=== PATIENT | male | born 1965 | race Caucasian/White ===

== ENCOUNTER 2023-10-20 23:21 | Observation (INO) | payer BC, SELFPAY ==
[2023-10-20 23:21] VITALS: BP 122/58; PULSE 77; RESP 15; TEMP 36.4; O2SAT 98; BMI 22.8
--- NOTE | 2023-10-20 23:55 | EDS_ITS ---
HPI History of Present Illness Chief Complaint: Substance Abuse Informant: patient Onset/Context/Timing Onset: - (Years of alcohol abuse.) Context: Gradual Onset Timing: Continuous Narrative Narrative: 57-year-old male with a history of alcohol abuse for years that he typically drinks 5-6 beers per day. He has been trying to this afternoon. He is requesting inpatient detox. Denies recent illness. Denies vomiting or melena. Denies abdominal pain. He does have a history of hypertension. Patient has never had detox before. Prior similar symptoms: Yes Recent Illness/Hospitalization: No PFSH PFS Medical History Alcohol abuse Hypertension Home Medications ?Medication ?Instructions ?Recorded ?Last Taken ?Type acamprosate 333 mg tablet,delayed 333 mg PO TID 10/21/23 Unknown History release amlodipine 5 mg tablet 5 mg PO QPM bp 10/21/23 10/21/23 History citalopram 20 mg tablet (Celexa) 20 mg PO DAILY 10/21/23 Unknown History cyclobenzaprine 10 mg tablet 10 mg PO TID 10/21/23 Unknown History lisinopril 40 mg tablet 40 mg PO DAILY 10/21/23 Unknown History mirtazapine 30 mg tablet 30 mg PO DAILY 10/21/23 Unknown History naltrexone 50 mg tablet 50 mg PO DAILY 10/21/23 Unknown History Allergy/AdvReac Type Severity Reaction Status Date / Time No Known Allergies Allergy Verified 10/20/23 23:25 Surgical History History of appendectomy Social History Smoking Status: Never smoker ROS ROS ED ROS Narrative Denies recent illness. Review of Systems ROS Unobtainable: Denies due to encephalopathy Constitutional Constitutional ED: Denies chills Eyes Eyes: Denies blurry vision ENT ENT ED: Denies ear pain Cardiovascular Cardiovascular: Denies chest pain Respiratory/Chest Respiratory/Chest: Denies cough or dyspnea Gastrointestinal Gastrointestinal: Denies abdominal pain, diarrhea, melena, nausea or vomiting Genitourinary Genitourinary ED: Denies dysuria Musculoskeletal Musculoskeletal: Denies arthralgias Integumentary Denies abscess Neurologic Neurologic: Denies headache(s) Psychiatric Psychiatric: Denies anxiety Endocrine Endocrinology: Denies cold intolerance Hematologic/Lymphatic Hematologic/Lymphatic: Denies easy bleeding, easy bruising or lymphadenopathy Allergic/Immunologic Allergic/Immunologic ED: Denies mouth swelling, tongue swelling or urticaria EXAM Physical Exam Narrative Exam Narrative: Well-appearing 57-year-old male. Vital signs stable afebrile. H EENT exam unremarkable. Neck nontender. No lymphadenopathy. Lungs clear to auscultation bilaterally. Heart regular rhythm no murmur. Abdomen soft nontender. Moving all 4 extremities. Nontender no edema. Neurologically he is awake and alert no focal motor deficits. Answering questions following commands. Const Vital Signs: 10/20/23 23:21 Temperature 97.6 F L Temperature Source Temporal Pulse Rate 77 Respiratory Rate 15 Blood Pressure 122/58 H Blood Pressure Mean 79 Pulse Ox 98 Oxygen Delivery Method Room Air Positive well nourished and well developed; Negative for cachectic, contractures or unkempt General Appearance ED: well developed and NAD; Negative for unkempt, cachectic, contractures or pallor Nutritional Appearance: Negative for cachectic HEENT Reports moist mucous membranes; Denies dry mucous membranes atraumatic; Negative for trauma or tenderness Mouth ED: No dry mucous membranes Mouth: No dry mucous membranes Eyes PERRL and EOMs intact bilaterally General Eye ED: Negative for pale conjunctiva, scleral icterus or other Neck no lymphadenopathy, supple and no JVD Thyroid: Negative for tender Lymph Lymphatic: no lymphadenopathy noted Chest Wall palpation of chest normal Chest: Negative for other Resp normal respiratory effort and clear to auscultation bilaterally Effort and Inspection: Negative for retractions Auscultation: Negative for rales, rhonchi, wheezes or diminished lung sounds Cardio regular rate, regular rhythm, S1 normal heart sound, S2 normal heart sound and no murmurs Rate: Negative for bradycardia or tachycardic Rhythm: Negative for abnormal rhythm Bruits: Negative for other GI soft to palpation, non-tender, non-distended and no masses Inspection: Negative for abdominal distention Palpation: Negative for tender or guarding Back/Spine no CVA tenderness General Back: Negative for CVA tenderness Cervical Spine: Negative for cervical spine tenderness Thoracic Spine / Upper Back: Negative for thoracic spinal tenderness Lumbar Spine / Lower Back: Negative for lumbar spinal tenderness Extremity General Extremety ED: Negative for edema or tenderness General Extremity: Negative for edema Neuro oriented x3 and CN's II-XII intact bilaterally Sensorium / Orientation: alert, oriented to person, oriented to place and oriented to time; Negative for confused, lethargic or stuporous Speech: speech normal Motor Exam: strength 5/5 throughout Psych mental status grossly normal and thought process normal Appearance: Negative for unkempt Attitude: No belligerent, No agitated, No aggressive and No hostile Mood & Affect: Negative for depressed, anxious or tearful Skin General Skin Exam: Negative for jaundice or pallor Lesions: no lesions Rashes: no rashes MDM MDM MDM Narrative Medical decision making narrative: 57-year-old male history of chronic alcohol abuse. Currently denies any recent illness. Denies any vomiting or melena. Clinically appears well. Exam benign. Screening detox labs are being obtained. I have the hospitalist on page for admission to detox. History & Record Review Discussion w/independent historian: Patient and Family Additional record(s) reviewed:: Prior labs Lab Data Attestation: I reviewed the patient's lab results. Lab results narrative: CBC normal. White count of 7. H&H of 13.3 and 39. Platelets 312. Alcohol level 100. Electrolytes show sodium 133. Gap 11. Normal BUN and creatinine. Glucose 126. Liver enzymes slightly elevated AST at 68 and ALT at 94. Urine tox screen pending. Labs: Laboratory Results - last 24 hr 10/20/23 23:40 WBC 7.4 RBC 4.29 L Hgb 13.3 Hct 39.8 L MCV 92.8 MCH 31.0 MCHC 33.4 RDW Std Deviation 40.1 RDW Coeff of Buck 11.8 Plt Count 312 MPV 9.5 Immature Gran % (Auto) 0.300 Neut % (Auto) 63.3 Lymph % (Auto) 27.3 [place] % (Auto) 8.1 Eos % (Auto) 0.5 Baso % (Auto) 0.5 Absolute Neuts (auto) 4.7 Absolute Lymphs (auto) 2.03 Nucleated RBC % 0 Sodium 133 L Potassium 4.0 Chloride 98 Carbon Dioxide 24.0 Anion Gap 11 BUN 9 Creatinine 0.88 Estim Creat Clear Calc 95.10 Est GFR (MDRD) Af Amer 114 Est GFR (MDRD) Non-Af 94 BUN/Creatinine Ratio 10.3 Glucose 126 H Calcium 8.6 Total Bilirubin 0.40 AST 68 H ALT 94 H Alkaline Phosphatase 115 Total Protein 7.5 Albumin 4.3 Globulin 3.2 Albumin/Globulin Ratio 1.3 Ethyl Alcohol 100.0 Discharge Plan Dx/Rx/DC Orders Clinical Impression: Alcohol abuse, Admitted to alcohol detoxification center, History of hypertension Disposition Disposition: Acute Care Hospital [facility] Discharge Date/Time: 10/21/23 00:41
--- NOTE | 2023-10-20 23:58 | ED.RN ---
The pt agrees to give consent Nghia Avery to give medical info during detox. [phone] is his number.
--- NOTE | 2023-10-20 23:59 | HP.PCM.HOS_ITS ---
[facility] - General General Date of Admission: 10/21/23 Date of Service: 10/13/23 Chief Complaint: Wants Help with Alcohol Detox. HPI Narrative JOSE LUIS LIU, is a 57 M with a past medical history of essential hypertension, history of appendectomy, history of cannabis abuse (Gummies) and chronic EtOH abuse; with patient routinely ingesting a sixpack of beer daily who presents to [facility] ER complaining of wanting help with detox. Mr. Liu reports his symptoms began approximately 1 day prior to admission with a gradual onset of malaise and uneasiness after he was confronted by his son and his about his alcohol abuse. He went on to state that he pushed the limit of his family's tolerance and now he knows he needs to get help to avoid destroying the relationship with his family. He denies previous alcohol detox. He denies seizure activity, hallucinations, tremor or other signs of withdrawal but he does admit to increased concern about the potential consequences of his addiction if he was unable to stop. The patient's son was present at the bedside in the ER and helped to augment the history and support his father through this difficult process. In the ER he was diagnosed with impending alcohol withdrawal in the setting of chronic alcohol abuse complicated by cannabis abuse and he was then admitted to the general medical floor for ongoing care for stay that is expected to be greater than 2 midnights. [facility] Medical History Alcohol abuse Hypertension Home Medications ?Medication ?Instructions ?Recorded ?Last Taken ?Type acamprosate 333 mg tablet,delayed 333 mg PO TID 10/21/23 Unknown History release amlodipine 5 mg tablet 5 mg PO QPM bp 10/21/23 10/21/23 History citalopram 20 mg tablet (Celexa) 20 mg PO DAILY 10/21/23 Unknown History cyclobenzaprine 10 mg tablet 10 mg PO TID 10/21/23 Unknown History lisinopril 40 mg tablet 40 mg PO DAILY 10/21/23 Unknown History mirtazapine 30 mg tablet 30 mg PO DAILY 10/21/23 Unknown History naltrexone 50 mg tablet 50 mg PO DAILY 10/21/23 Unknown History Allergy/AdvReac Type Severity Reaction Status Date / Time No Known Allergies Allergy Verified 10/21/23 01:59 Surgical History History of appendectomy Social History Smoking Status: Never smoker ROS ROS Narrative Review of systems: General: Patient denies fevers or chills HENT: Denies headache, denies stuffy nose, denies sore throat EYES: Denies changes in vision or discharge from eyes. Resp: Denies cough, denies shortness of breath Cardiac: Denies chest pain, palpitations or heart racing. GI: Denies abdominal pain, denies changes in bowel, denies nausea or vomiting. : Denies changes in urination Extremity: Denies swelling Musculoskeletal: Feels somewhat generally weak and unwell but denies arthralgias or myalgias. Neuro: Patient headache, paresthesias or focal neurologic weakness. Heme: Denies any bleeding or bruising Skin: Denies rashes Psychiatric: No complaints voiced related to uncontrolled depression or anxiety but he is concerned about potentially losing his family if he can stop drinking. Endocrine: No polyuria, polydipsia or polyphagia. The rest of the 14 point ROS was negative except for positives in HPI. Vital Signs Vital Signs Vital Signs: 10/20/23 23:21 Temperature 97.6 F L Temperature Source Temporal Pulse Rate 77 Respiratory Rate 15 Blood Pressure 122/58 H Blood Pressure Mean 79 Pulse Ox 98 Oxygen Delivery Method Room Air Weight Weight: 164 lb Body Mass Index (BMI) 22.8 Physical Exam Const alert, oriented x3, no apparent distress, average body habitus and healthy appearing General Appearance: cooperative HEENT normocephalic, head/scalp atraumatic, hearing grossly normal bilaterally and moist oral mucous membranes Eyes PERRL and EOMs intact bilaterally Eyes Narrative: Sclerae injected. Neck no lymphadenopathy and supple Resp normal respiratory effort, no retractions, no use of accessory muscles and clear to auscultation bilaterally Cardio regular rate and regular rhythm GI normal to inspection, nondistended, normoactive bowel sounds, soft to palpation, non-tender and non-distended Extremity normal to inspection and full ROM Skin Skin Narrative: Patient has no evidence of jaundice or rash. Neuro oriented x3, CN's II-XII intact bilaterally, moves all extremities and no focal motor deficits Sensorium / Orientation: awake, alert, oriented to person, oriented to place and oriented to time Speech: speech normal Psych affect normal Results Medical Records Data Attestation: I reviewed the patient's medical records Lab / Micro Data Attestation: I reviewed the patient's lab results. 10/21/23 07:05 10/20/23 23:40 Assessment & Plan Assessment/Plan (1) Alcohol abuse: (2) Cannabis abuse: (3) Essential hypertension: PLAN: Plan 1. Impending alcohol withdrawal in the setting of chronic alcohol abuse - Admit to general medical floor for treatment under the alcohol detoxification protocol primarily consisting of phenobarbital taper. Alcohol cessation will be strongly encouraged. Give normal saline IV fluid plus IV Zofran as needed for nausea and vomiting. Give ibuprofen as needed pain or fever. We will avoid Tylenol or other potentially hepatotoxic agents. 2. Cannabis abuse complicating #1 - Cannabis cessation will be strongly encouraged. 3. Essential hypertension - Continue home medications plus give IV hydralazine as needed for systolic blood pressure greater than 160 mmHg. 4. History of appendectomy - Noted. 5. DVT prophylaxis - Lovenox 40 mg sq daily. Total time: Approximately 55 minutes. Charges/Coding Visit Charges Inpatient E&M: 38112 Init Hosp L2
[2023-10-21] VITALS (7 sets, daily range): BP systolic 120–148; BP diastolic 66–91; PULSE 63–76; RESP 16–19; TEMP 36.4–37; O2SAT 97–100; BMI 22.6
[2023-10-21 00:17] LABS: Absolute Lymphocyte Count 2.03 X10^3/uL (0.83-4.51); Absolute Neutrophil Count 4.7 X10^3/uL (2.0-7.7); Basophil# 0.04 X10^3/uL; Basophil% 0.5 % (0-1); Eosinophil# 0.04 X10^3/uL; Eosinophils% 0.5 % (0-5); Hematocrit 39.8 % (40-54); Hemoglobin 13.3 g/dL (13.0-16.5); Lymphocyte # 2.03 X10^3/ul (0.83-4.51); Lymphocyte % 27.3 % (19-41); Mean Corp Hgb Conc 33.4 g/dL (32-36); Mean Corpuscular Volume 92.8 fL (80-94); Mean Platelet Vol. 9.5 fl (6.2-12.0); Monocyte% 8.1 % (0-10); NRBC Flagged by Analyzer 0 % (0-5); Neutrophil # 4.71 X10^3/uL (2.7-7.7); Neutrophil % 63.3 % (47-70); Platelet Count 312 K/mm3 (150-450); RBC Distribution Width CV 11.8 % (11.6-14.6); RBC Distribution Width SD 40.1 fl (35.1-43.9); Red Blood Count 4.29 M/mm3 (4.6-6.2); White Blood Count 7.4 K/mm3 (4.4-11.0)
--- NOTE | 2023-10-21 00:18 | ED.RN ---
Pt took his nightly dose of amlodopine 5mg. Dr Johnson gave the approval to take it in the ER prior to being admitted to the floor.
[2023-10-21 00:31] LABS: ALB/GLOB Ratio 1.3 RATIO (0.9-2.4); AST(SGOT) 68 U/L (15-37); Alanine Aminotransfer ALT/SGPT 94 U/L (16-61); Albumin, Serum 4.3 g/dL (3.2-5.0); Alkaline Phosphatase 115 U/L (45-117); Anion Gap 11 (5-15); BUN 9 mg/dL (7-18); BUN/Creat Ratio 10.3 RATIO (10-20); Calcium,Total 8.6 mg/dL (8.5-10.1); Chloride 98 mmol/L (98-107); Creatinine, Serum 0.88 mg/dL (0.70-1.30); EST Glomerular Filtration Rate 94 mL/min (>60); Est Glom Filt Rate - Afr Amer 114 mL/min (>60); Globulin 3.2 g/dL (2.2-4.2); Glucose 126 mg/dL (74-106); Protein, Total 7.5 g/dL (6.4-8.2); Sodium Level 133 mmol/L (136-145)
[2023-10-21] MEDS: 0.9% Normal Saline (1000mL) 1,000 ML 75 ML IV (01:26)
[2023-10-21] MEDS: Phenobarbital 32.4 MG Tablet 64.8 MG PO ×6 (01:26→20:49)
[2023-10-21 05:54] LABS: Amphetamine Urine VISTA NEGATIVE (<1000 ng/mL); Barbiturate Urine VISTA POSITIVE (< 200 ng/mL); Benzodiazepine Urine VISTA NEGATIVE (< 200 ng/mL); Cocaine Urine VISTA NEGATIVE (< 300 ng/mL); Ecstacy Urine VISTA NEGATIVE (< 500 ng/mL); Methadone Urine VISTA NEGATIVE (< 300 ng/mL); PCP Urine VISTA NEGATIVE (< 25 ng/mL); THC Urine VISTA POSITIVE (< 50 ng/mL); Vista UDS pH Range 7
--- NOTE | 2023-10-21 07:27 | PN.HOSP_ITS ---
Reason for Visit Reason for Visit: EtOH Detox Subjective Subjective Mr. Liu is a 57-year-old male who presented to the emergency department at [facility] on 10/21/2023 requesting detox from alcohol. He typically drinks about 5-7 beers daily. He evidently was confronted by his son and about his alcohol use and has pushed the limit of his family's tolerance and now he knows he needs to get help because it is destroying the relationships and his family. He has never been through an alcohol detox program. He denied any seizure activity, hallucinations or tremor at the time of presentation but he was having concerned about the potential consequences of his addiction and had some general malaise. He also uses cannabis (Gummies) on a regular basis. Vital signs on presentation were unremarkable. CBC was unremarkable. Chemistry panel showed mild hyponatremia with a sodium of 133 but was otherwise unremarkable. Liver functions were mildly elevated with an AST of 68 and ALT of 94. Toxicology screen was positive for cannabinoids and barbiturates but appears he was started on phenobarb prior to the toxicology being obtained. At the alcohol level at the time of presentation was 100. He was admitted to the medical floor and placed on a phenobarbital taper with supportive medications. Denies tremor. Feeling okay. Asking for nasal spray. Did discuss that if he is feeling okay tomorrow maybe able to go home after seen by 180 for assistance with post d/c follow-up. Did impress upon him the importance of being honest with us about his sx and he agreed and voiced understanding. Objective Data Objective Data Vital Signs: Vital Signs Temp Pulse Resp BP Pulse Ox O2 Del Method 97.8 F 76 16 143/70 H 99 Room Air 10/21/23 05:16 10/21/23 05:16 10/21/23 05:16 10/21/23 05:16 10/21/23 05:16 10/21/23 05:20 Oxygen Delivery Method Room Air Weight: 73.6 kg Body Mass Index (BMI) 22.6 Intake & Output: Intake and Output for Last 24 Hours 10/19/23 10/20/23 10/21/23 23:59 23:59 23:59 Intake Total 120 / 120 Balance 120 / 120 Lab / Micro Data 10/21/23 07:05 10/21/23 07:05 Labs: Laboratory Results - last 24 hr 10/20/23 01:30: Urine Opiates Screen Cancelled, Urine Methadone Screen Cancelled, Ur Barbiturates Screen Cancelled, Ur Phencyclidine Scrn Cancelled, Ur Amphetamines Screen Cancelled, MDMA (Ecstasy) Screen Cancelled, U Benzodiazepines Scrn Cancelled, Urine Cocaine Screen Cancelled, U Cannabinoids Screen Cancelled, Ur Drug Screen Comment Cancelled 10/20/23 23:40: WBC 7.4, RBC 4.29 L, Hgb 13.3, Hct 39.8 L, MCV 92.8, MCH 31.0, MCHC 33.4, RDW Std Deviation 40.1, RDW Coeff of Buck 11.8, Plt Count 312, MPV 9.5, Immature Gran % (Auto) 0.300, Neut % (Auto) 63.3, Lymph % (Auto) 27.3, [place] % (Auto) 8.1, Eos % (Auto) 0.5, Baso % (Auto) 0.5, Absolute Neuts (auto) 4.7, Absolute Lymphs (auto) 2.03, Nucleated RBC % 0, Sodium 133 L, Potassium 4.0, Chloride 98, Carbon Dioxide 24.0, Anion Gap 11, BUN 9, Creatinine 0.88, Estim Creat Clear Calc 95.10, Est GFR (MDRD) Af Amer 114, Est GFR (MDRD) Non-Af 94, BUN/Creatinine Ratio 10.3, Glucose 126 H, Calcium 8.6, Total Bilirubin 0.40, AST 68 H, ALT 94 H, Alkaline Phosphatase 115, Total Protein 7.5, Albumin 4.3, Globulin 3.2, Albumin/Globulin Ratio 1.3, Ethyl Alcohol 100.0 10/21/23 04:48: Urine Opiates Screen NEGATIVE, Urine Methadone Screen NEGATIVE, Ur Barbiturates Screen POSITIVE H, Ur Phencyclidine Scrn NEGATIVE, Ur Amphetamines Screen NEGATIVE, MDMA (Ecstasy) Screen NEGATIVE, U Benzodiazepines Scrn NEGATIVE, Urine Cocaine Screen NEGATIVE, U Cannabinoids Screen POSITIVE H, Ur Drug Screen Comment Physical Exam Const alert, oriented x3, no apparent distress, average body habitus, healthy appearing and well nourished Constitutional Narrative: Middle aged WM, sitting up in bed, appears comfortable, nontoxic HEENT head/scalp atraumatic and moist oral mucous membranes HEENT Narrative: dentition is good, Mallampati 2 Head and Scalp: normocephalic Resp normal respiratory effort, no retractions, no use of accessory muscles and clear to auscultation bilaterally Auscultation: Negative for rales, rhonchi or wheezes Cardio regular rate, regular rhythm, S1 normal heart sound, S2 normal heart sound, no murmurs, no rub, no gallops and no clicks GI normal to inspection, nondistended, normoactive bowel sounds, soft to palpation and non-tender Extremity no clubbing, cyanosis or edema Extremity Narrative: 2+ pedal pulses Neuro oriented x3, moves all extremities and no focal motor deficits Neuro Narrative: No tremor noted Speech: speech normal Psych affect normal Psych Narrative: very pleasant, good eye contact Assessment & Plan Assessment/Plan (1) Alcohol abuse: PLAN: Plan Pending alcohol withdrawal -Continue phenobarbital taper -Continue thiamine and folate -Continue supplemental medications for withdrawal symptoms -180 consultation for assistance with discharge planning Hypertension -Continue home amlodipine -Continue home lisinopril Cannabis abuse -Strongly encouraged cessation History of depression -Patient is not currently on any medications for this DVT prophylaxis -d/c lovenox as has a phobia of needles -encourage early and frequent ambulation CODE STATUS -Full code Charges/Coding Visit Charges Inpatient E&M: 27219 Subs Hosp L2
[2023-10-21 07:51] LABS: Absolute Lymphocyte Count 1.06 X10^3/uL (0.83-4.51); Absolute Neutrophil Count 4.5 X10^3/uL (2.0-7.7); Basophil# 0.04 X10^3/uL; Basophil% 0.6 % (0-1); Eosinophil# 0.07 X10^3/uL; Eosinophils% 1.1 % (0-5); Hematocrit 38.2 % (40-54); Hemoglobin 12.7 g/dL (13.0-16.5); Lymphocyte # 1.06 X10^3/ul (0.83-4.51); Mean Corp Hgb Conc 33.2 g/dL (32-36); Mean Corpuscular Hgb 31.1 pg (27.0-32.0); Mean Corpuscular Volume 93.4 fL (80-94); Mean Platelet Vol. 9.7 fl (6.2-12.0); Monocyte# 0.62 X10^3/uL; Monocyte% 9.9 % (0-10); NRBC Flagged by Analyzer 0 % (0-5); Neutrophil # 4.45 X10^3/uL (2.7-7.7); Neutrophil % 71.2 % (47-70); Platelet Count 284 K/mm3 (150-450); RBC Distribution Width CV 11.8 % (11.6-14.6); RBC Distribution Width SD 40.1 fl (35.1-43.9); Red Blood Count 4.09 M/mm3 (4.6-6.2); White Blood Count 6.3 K/mm3 (4.4-11.0)
[2023-10-21 08:10] LABS: ALB/GLOB Ratio 1.3 RATIO (0.9-2.4); AST(SGOT) 66 U/L (15-37); Alanine Aminotransfer ALT/SGPT 92 U/L (16-61); Alkaline Phosphatase 105 U/L (45-117); Anion Gap 7 (5-15); BUN 10 mg/dL (7-18); BUN/Creat Ratio 11.4 RATIO (10-20); Calcium,Total 9.3 mg/dL (8.5-10.1); Chloride 101 mmol/L (98-107); Creatinine, Serum 0.88 mg/dL (0.70-1.30); EST Glomerular Filtration Rate 94 mL/min (>60); Est Glom Filt Rate - Afr Amer 114 mL/min (>60); Estimated Creatinine Clearance 94.09 ml/min; Glucose 98 mg/dL (74-106); Magnesium 2.4 mg/dL (1.6-2.6); Phosphorus 3.6 mg/dL (2.5-4.9); Potassium 4.2 mmol/L (3.5-5.1); Sodium Level 134 mmol/L (136-145)
[2023-10-21] MEDS: Thiamine Hydrochloride 100 MG Tablet PO (08:45)
[2023-10-21] MEDS: Folic Acid 1 MG Tablet PO (08:45)
[2023-10-21] MEDS: Lisinopril 40 MG Tablet PO (08:46)
[2023-10-21] MEDS: Sodium Chloride 0.65% 1 SPRAY SPRAY.BTL 2 SPRAY NASAL ×2 (10:05→22:36)
[2023-10-21] MEDS: amLODIPine 5 MG Tablet PO (20:51)
[2023-10-21] MEDS: traZODone 100 MG Tablet PO (22:36)
[2023-10-22 00:32] VITALS: BP 101/69; PULSE 74; RESP 18; TEMP 36.4; O2SAT 98
[2023-10-22] MEDS: Phenobarbital 32.4 MG Tablet 64.8 MG PO ×4 (00:34→13:30)
[2023-10-22 05:23] VITALS: BP 107/73; PULSE 89; RESP 18; TEMP 36.6; O2SAT 99
[2023-10-22 06:00] VITALS: BMI 22.4
[2023-10-22] MEDS: Lisinopril 40 MG Tablet PO (08:48)
[2023-10-22] MEDS: Folic Acid 1 MG Tablet PO (08:48)
[2023-10-22] MEDS: Thiamine Hydrochloride 100 MG Tablet PO (08:48)
[2023-10-22 09:38] VITALS: BP 119/75; PULSE 65; RESP 12; TEMP 36.5; O2SAT 100
[2023-10-22 11:20] VITALS: BP 122/74; PULSE 64; RESP 12; TEMP 37; O2SAT 100
--- NOTE | 2023-10-22 12:03 | PCM.DC.SUM ---
Providers Date of Admission: 10/21/23 Date of Discharge: 10/22/23 Primary Care Physician: No Primary Care Phys Reason For Visit: IMPENDING ETOH WITHDRAWAL IN SETTING OF CHRONIC Diagnosis Discharge Diagnosis (1) Alcohol abuse: Status: Acute Code(s): F10.10 - Alcohol abuse, uncomplicated Medications at Discharge Home Medications amlodipine 5 mg tablet 5 mg PO QPM bp 10/21/23 lisinopril 40 mg tablet 40 mg PO DAILY 10/21/23 methyl mqtommbylv-asxughs-jmyqckj-Siberian fir needle oil nasal inhalr (Vicks VapoInhaler nasal) 2 inh intranasal BID PRN PRN allergy symptoms 10/21/23 Hospital Course Operations None Procedures None Summary of Care Provided Minutes Spent on Discharge: 25 Hospital Course: Mr. Liu is a 57-year-old male who presented to the emergency department at [facility] on 10/21/2023 requesting detox from alcohol. He typically drinks about 5-7 beers daily. He evidently was confronted by his son and about his alcohol use and has pushed the limit of his family's tolerance and now he knows he needs to get help because it is destroying the relationships and his family. He has never been through an alcohol detox program. He denied any seizure activity, hallucinations or tremor at the time of presentation but he was having concerned about the potential consequences of his addiction and had some general malaise. He also uses cannabis (Gummies) on a regular basis. Vital signs on presentation were unremarkable. CBC was unremarkable. Chemistry panel showed mild hyponatremia with a sodium of 133 but was otherwise unremarkable. Liver functions were mildly elevated with an AST of 68 and ALT of 94. Toxicology screen was positive for cannabinoids and barbiturates but appears he was started on phenobarb prior to the toxicology being obtained. At the alcohol level at the time of presentation was 100. He was admitted to the medical floor and placed on a phenobarbital taper with supportive medications as well as thiamine and folate. Fortunately, he never had any severe withdrawal symptoms and had an overall uneventful detox. He was evaluated by 180 liaison on the a.m. of 10/22/2023 and deemed appropriate candidate for the utilization of Vivitrol. He was given his first dose here prior to discharge and did well. Plan is for him to follow-up as an outpatient for continued care and to maintain sobriety. Patient was able to be discharged home in stable condition on 10/22/2023. We strongly encouraged him to establish with a primary care physician and be seen in the next 2 to 4 weeks for ongoing medical care as an outpatient after discharge. Discharge diagnoses: Alcohol abuse Acute alcohol withdrawal Hypertension Cannabis use History of depression Physical Exam Const alert, oriented x3, no apparent distress, average body habitus, no limitations, healthy appearing and well nourished Constitutional Narrative: Middle aged WM, sitting up in bed, appears comfortable, nontoxic General Appearance: cooperative, comfortable, well kempt and well developed Orientation / Consciousness: awake, oriented to person, oriented to place and oriented to time Exam Limitations: no limitations HEENT normocephalic, head/scalp atraumatic, hearing grossly normal bilaterally and moist oral mucous membranes HEENT Narrative: Mallampati 2, no thrush Resp normal respiratory effort, no retractions, no use of accessory muscles and clear to auscultation bilaterally Auscultation: Negative for rales, rhonchi or wheezes Cardio regular rate, regular rhythm, S1 normal heart sound, S2 normal heart sound, no murmurs, no rub, no gallops and no clicks GI normal to inspection, nondistended, normoactive bowel sounds, soft to palpation and non-tender Extremity no clubbing, cyanosis or edema Extremity Narrative: 2+ pedal pulses Neuro oriented x3, moves all extremities and no focal motor deficits Neuro Narrative: No tremor noted Sensorium / Orientation: oriented to person Speech: speech normal Psych affect normal Psych Narrative: very pleasant, good eye contact Weight / BMI Weight Weight: 72.9 kg Body Mass Index (BMI) 22.4 ABG / Lab / Microbiology Data 10/21/23 07:05 10/21/23 07:05 D/C Instructions Discharge Diet: Low fat / Low cholesterol Discharge Activity: Return to Normal Activity Return to work on: 10/23/23 Meaningful Use Info Meaningful Use Meaningful Use Diagnoses (Choose all that apply): None applicable Ischemic Stroke Statin Dosing Therapy Reference: STATIN DOSE THERAPY REFERENCE: * Patients > 75 years receive moderate or high dose statin therapy. * Patients 75 years or YOUNGER should receive HIGH intensity statin dose unless contraindicated. You will be required to document reason for non-treatment if statin daily dose does not meet guidelines. HIGH DOSE STATIN THERAPY DAILY Atorvastatin > than or = to 40 mg Rosuvastatin > than or = to 20 mg Amlodipine + Atorvastatin > than or = to 2.5/40 mg Ezetimibe + Simvastatin 10/80 mg Simvastatin 80mg Discharge Plan Admission Admit Date/Time: 10/21/23 00:07 Primary Reason for Your Visit: EtOH Detox Attending Provider: Maddie Perez Primary Care Provider: Care Physician,No Primary Consulting Providers: Haja Smiley Instructions Additional Instructions / Restrictions: 1. Please follow-up as an outpatient as directed by Manuel hendrix 2. Would recommend establishing and following up with her primary care physician within the next 2 to 4 weeks Discharge Orders/Prescriptions Prescriptions: Continued lisinopril 40 mg tablet 40 mg PO DAILY amlodipine 5 mg tablet 5 mg PO QPM Vicks VapoInhaler Inhaler 2 inh intranasal BID PRN PRN (Reason: allergy symptoms) Rx Instructions: uses sayra nares Discontinued cyclobenzaprine 10 mg tablet 10 mg PO TID citalopram [Celexa] 20 mg tablet 20 mg PO DAILY acamprosate 333 mg tablet,delayed release (DR/EC) 333 mg PO TID Rx Instructions: administer with mid-day and evening meals mirtazapine 30 mg tablet 30 mg PO DAILY naltrexone 50 mg tablet 50 mg PO DAILY Referrals / Follow Up: Care Physician,No Primary [Primary Care Provider] - Disposition Disposition (needs filled in before D/C Order can be placed): Home, Self Care Charges/Coding Visit Charges Inpatient E&M: [id number] Disch Hosp
--- NOTE | 2023-10-22 12:30 | PHA.DC.MR.R ---
Pharmacy [place] Med Reconciliation Pharmacy Service has performed discharge medication reconciliation for this patient. The patient's discharge medication list was reviewed for discrepancies and discrepancies were resolved. Medications at Discharge Home Medications amlodipine 5 mg tablet 5 mg PO QPM bp 10/21/23 lisinopril 40 mg tablet 40 mg PO DAILY 10/21/23 methyl skkgzvcyic-qqcjpku-aijzcac-Siberian fir needle oil nasal inhalr (Vicks VapoInhaler nasal) 2 inh intranasal BID PRN PRN allergy symptoms 10/21/23
--- NOTE | 2023-10-22 13:22 | NURSING ---
Update called to son Nghia and Donna. Information given about vivitrol injection.
[2023-10-22] MEDS: Naltrexone Microspheres 380 MG SYRINGE IM (14:33)
[2023-10-22] MEDS: Vivitrol ID Card 1 EACH MC (14:37)
[2023-10-22] MEDS: Vivitrol Administration Needles 1 EACH MC (14:37)
--- NOTE | 2023-10-22 16:13 | CHAPLAIN ---
Type of Pastoral Visit _x__ Initial Visit ___ Follow-up Visit ___ On-call Visit ___ General Patient Visit ___ Spiritual Assessment ___ Family Conference ___ Bereavement ___ Rapid Response ___ Code Blue ___ Other (describe below) Pastoral Care Referral From _x__ Patient ___ Family ___ Nurse ___ Physician ___ Security Control Center Operator ___ Parts Runner ___ Other (describe below) Sacrament/Intervention ___ Active listening ___ Anointing ___ Oriental Orthodox ___ Bereavement ___ Communion ___ Lenora exploration ___ ___ Life review ___ Prayer ___ Reconciliation ___ Sacrament of Sick _x__ Supportive presence ___ Wedding ___ Other (describe below) Pastoral Comments patient was dressed and was being helped by medical staff to get ready for discharge; son of pt was there to take him home; offer of support but acknowledgement of his leaving; pt expresses thanks for asking about him and the help offered; pt states I hope to not have to come back and I am fine
== END 2023-10-22 14:42 | disposition home or self-care (01) | DRG 897 ==
LOC: ED 10-21 00:17 → PCU 10-21 06:54
PROVIDERS: Admitting Provider Internal Medicine; Emergency Provider Emergency Medicine; Visit Provider Internal Medicine
DX: F10.139 Alcohol abuse with withdrawal, unspecified (principal); E87.1 Hypo-osmolality and hyponatremia; I10 Essential (primary) hypertension; F12.10 Cannabis abuse, uncomplicated; Y90.5 Blood alcohol level of 100-119 mg/100 ml; Z79.899 Other long term (current) drug therapy
CPT/HCPCS: 36415; 80053; 80307; 80320; 83735; 84100; 85025; 96360; 96361; 96372; 99221; 99284; 99406; J7030; A4216; G0378; G0480